=== PATIENT | male | born 1975 | race Caucasian/White ===

== ENCOUNTER 2016-11-06 06:58 | Emergency (ER) | payer OTHER ==
[~2016-11-06] VITALS: Ht 177.8 cm; Wt 145.2 kg
[2016-11-06 07:03] VITALS: BP 160/93
--- NOTE | 2016-11-06 08:00 | ED MVC/FALL/TRAUMA COMPLAINT ---
History of Present Illness General Chief Complaint: General Adult Stated Complaint: RT KNEE AND WRIST PAIN WHILE AT WORK TRANS PT BIBA Source: patient, old records, EMS Exam Limitations: no limitations Vital Signs & Intake/Output Vital Signs & Intake/Output Vital Signs Date Time Temp Pulse Resp B/P Pulse O2 O2 Flow FiO2 Ox Delivery Rate 11/06 07 97.5 88 16 160/93 98 Room Air Allergies Coded Allergies: propofol (Severe, THROAT SWELLING 11/06/16) venom-honey bee (Severe, RESPIRATORY, HIVES 11/06/16) Uncoded Allergies: BEE STINGS (Severe, RESPIRATORY, HIVES 01/20/11) Reconcile Medications Baclofen 10 MG TABLET 1-2 TAB PO TID PRN muscle strain Ibuprofen 600 MG TABLET 1 TAB PO Q6PRN PRN pain with food Triage Note: 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 PT REFUSES MEDS AT TRIAGE Triage Nurses Notes Reviewed? yes Onset: Just prior to arrival Duration: minute(s):, constant, continues in ED Timing: recent history Severity: moderate Injuries/Fall Location: upper extremity, lower extremity Method of Injury: fall Loss of Consciousness: no loss of consciousness Modifying Factors: Improves With: rest. Worsens With: movement, palpation. HPI: Shortly prior to admission patient was carrying out another patient in a stair chair losing balance and falling to his right side. He complains of right wrist and knee pain worse with palpation and movement sharp mild in severity nonradiating. He denies loss consciousness fever chills nausea vomiting diarrhea abdominal pain chest pain shortness breath headache dysuria rash bleeding Past History Travel History Traveled to [place] past 21 day No Medical History Any Pertinent Medical History? see below for history Neurological: NONE EENT: NONE Cardiovascular: NONE Respiratory: obstructive sleep apnea Gastrointestinal: NONE Hepatic: NONE Renal: NONE Musculoskeletal: NONE Psychiatric: NONE Endocrine: NONE Blood Disorders: NONE Cancer(s): NONE IT APPLICATIONS DEVELOPER/Reproductive: NONE Surgical History Surgical History: non-contributory Psychosocial History What is your primary language Korean Tobacco Use: Never used ETOH Use: denies use Illicit Drug Use: denies illicit drug use Family History Hx Contributory? No Review of Systems Review of Systems Constitutional: Reports: no symptoms. Eyes: Reports: no symptoms. Ears, Nose, Throat, Mouth: Reports: no symptoms. Respiratory: Reports: no symptoms. Cardiovascular: Reports: no symptoms. Gastrointestinal/Abdominal: Reports: no symptoms. Genitourinary: Reports: no symptoms. Musculoskeletal: Reports: see HPI, joint pain. Skin: Reports: no symptoms. Neurological/Psychological: Reports: no symptoms. All Other Systems: Reviewed and Negative Physical Exam Physical Exam General Appearance: well developed/nourished, alert, awake, anxious, mild distress, obese Head: atraumatic, normal appearance Eyes: Bilateral: normal appearance, PERRL, EOMI, normal inspection. Ears, Nose, Throat, Mouth: hearing grossly normal, moist mucous membrane Neck: normal inspection, supple, full range of motion, normal alignment, no midline tenderness Respiratory: normal breath sounds, chest non-tender, no respiratory distress, quiet respiration, lungs clear Cardiovascular: regular rate/rhythm, normal peripheral pulses, norml femoral pulses equa Peripheral Pulses: 4+ carotid (R), 4+ carotid (L) Gastrointestinal: normal bowel sounds, soft, non-tender, no organomegaly Back: normal inspection, normal range of motion Extremities: normal range of motion, bony-point tenderness, pain with movement, tenderness (right lateral wrist patellar) Neurologic/Psych: no motor/sensory deficits, awake, alert, oriented x 3, normal gait, normal mood/affect, 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 No Severe Sepsis Present: No Septic Shock Present: No Progress Differential Diagnosis: ext injury Plan of Care: Orders Procedure Date/time Status Durable Medical Equipment 11/06 820 Active Diagnostic Imaging: Viewed by Me: Radiology Read. Discussed w/RAD: Radiology Read. Radiology Impression: no acute abnormality, no fracture, no dislocation Departure Departure Time of Disposition: 812 Disposition: HOME OR SELF CARE Condition: Stable Clinical Impression Primary Impression: Right wrist sprain Qualifiers: Encounter type: initial encounter Qualified Code: S63.501A - Unspecified sprain of right wrist, initial encounter Secondary Impressions: Contusion of right knee Qualifiers: Encounter type: initial encounter Qualified Code: S80.01XA - Contusion of right knee, initial encounter Referrals: MARGE ROGER,PRISCILLA Crowe (PCP/Family) Departure Forms: Customer Survey Employee Industrial Accident General Discharge Information Prescriptions: Current Visit Scripts Ibuprofen 1 TAB PO Q6PRN PRN pain #50 TAB with food Baclofen 1-2 TAB PO TID PRN muscle strain #30 TAB Procedures Splinting Location: right wrist Manual Alignment Performed: No Pre-Made Type: velcro Splint: wrist Splint Applied By: splint applied by other Pre-Proc Neuro Vasc Exam: normal Post-Proc Neuro Vasc Exam: normal
--- NOTE | 2016-11-06 08:00 | RADIOLOGY REPORT ---
EXAMINATION: Right wrist and right knee. CLINICAL INFORMATION: Fall. Right wrist and right forearm pain. COMPARISON: Left knee 01/20/2011 TECHNIQUE: AP, lateral, and oblique views of the right wrist. 4 views right knee. FINDINGS: RIGHT KNEE: There is minimal loss of medial compartment joint space. The lateral and patellofemoral compartment joint space is maintained. No visible acute fracture or dislocation seen. There are no loose bodies. There is mild infra patellar spurring. Right wrist: There is no visible acute fracture, dislocation or soft tissue abnormality. 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 Unremarkable right wrist exam.
[2016-11-06] MEDS ORDERED: IBUPROFEN600 M1 PO (08:15)
[2016-11-06] MEDS ORDERED: BACLOFEN10 M1 PO (08:15)
== END 2016-11-06 08:31 ==
LOC: ERH 06:58
DX: S63.501A Unspecified sprain of right wrist, initial encounter (principal); S80.01XA Contusion of right knee, initial encounter; W19.XXXA Unspecified fall, initial encounter
CPT/HCPCS: 73110-RT; 73562-RT